=== PATIENT | female | born 1990 | race Caucasian/White ===

== ENCOUNTER 2017-03-03 04:37 | Observation (INO) | payer SELFPAY ==
[~2017-03-03] VITALS: Ht 165.1 cm; Wt 75.7 kg
[2017-03-03 05:10] VITALS: BP 115/61
[2017-03-03] MEDS ORDERED: INFLUENZA VIRUS VACCINE QVS 2017-18 (3YR+)/PF 60 MCG/0.5 ML SYRINGE IM ONE (05:30)
[2017-03-03 05:42] LABS: APPEARANCE,URINE CLOUDY (CLEAR); GLUCOSE, URINE (UA) 100 mg/dL (NEGATIVE); KETONES,URINE NEGATIVE (NEGATIVE); LEUKOCYTE ESTERASE ,URINE NEGATIVE (NEGATIVE); OCCULT BLOOD,URINE NEGATIVE (NEGATIVE); PROTEIN,URINE NEGATIVE (NEGATIVE)
[2017-03-03 06:00] LABS: RBC,URINE 0-2 /HPF (0-2); SQUAMOUS EPITHELIAL CELL,UR Moderate /LPF (None Seen); WBC,URINE 0-2 /HPF (0-5)
[2017-03-03] MEDS: RINGERS SOLUTION,LACTATED 1,000 ML IV SCH (06:54)
== END 2017-03-03 07:20 | disposition home or self-care (01) ==
LOC: 4S 04:37
PROVIDERS: ADMIT Obstetrics & Gynecology; ATTEND Obstetrics & Gynecology
DX: O26.893 Other specified pregnancy related conditions, third trimester (principal); R10.9 Unspecified abdominal pain; Z3A.37 37 weeks gestation of pregnancy
CPT/HCPCS: 59025; 76805; 80307 ×8; 81001; G0378; J7120; 90471

== ENCOUNTER 2017-03-30 19:18 | Emergency (ER) | payer SELFPAY ==
[~2017-03-30] VITALS: Ht 167.6 cm; Wt 81.8 kg
[2017-03-30 19:34] VITALS: BP 135/89
== END 2017-03-30 21:16 | disposition other institution (70) ==
LOC: EMS 19:19
DX: O26.893 Other specified pregnancy related conditions, third trimester (principal); R10.9 Unspecified abdominal pain; Z53.21 Procedure and treatment not carried out due to patient leaving prior to being seen by health care provider

== ENCOUNTER 2017-03-30 20:00 | Observation (INO) | payer SELFPAY ==
[~2017-03-30] VITALS: Ht 167.6 cm; Wt 78.5 kg
[2017-03-30 23:24] VITALS: BP 115/78
== END 2017-03-30 23:20 | disposition home or self-care (01) ==
LOC: 4S 20:00
PROVIDERS: ADMIT Obstetrics & Gynecology; ATTEND Obstetrics & Gynecology
DX: O62.9 Abnormality of forces of labor, unspecified (principal); O48.0 Post-term pregnancy; O26.893 Other specified pregnancy related conditions, third trimester; R10.30 Lower abdominal pain, unspecified; O99.013 Anemia complicating pregnancy, third trimester; Z3A.40 40 weeks gestation of pregnancy
CPT/HCPCS: 59025; 76811; 80307 ×8; G0378